=== PATIENT | male | born 1960 | race African-American/Black ===

== ENCOUNTER 2017-02-24 05:50 | Emergency (ER) | payer MEDICAID ==
[~2017-02-24] VITALS: Ht 180.3 cm; Wt 84.0 kg
[~2017-02-24 05:50] MED LIST: GLIP5TAB12 PO; METF10002 PO
[2017-02-24] MEDS ORDERED: KETOROLAC 60MG/2ML VIAL IM ONE (07:45)
[2017-02-24 12:56] LABS: INR 1.1; PROTHROMBIN TIME 11.1 sec (9.4-11.6)
[2017-02-24 13:04] LABS: CARBON DIOXIDE 29 mEq/L (21-32); CHLORIDE 106 mEq/L (98-107); TROPONIN I < 0.02 ng/mL (0.00-0.04)
[2017-02-24 14:26] LABS: BASOPHILS % 0.2 % (0.0-2.0); EOSINOPHILS % 1.9 % (0.0-5.0); HEMATOCRIT. 46.6 % (42.0-52.0); HEMOGLOBIN. 15.7 g/dL (14.0-18.0); LYMPHOCYTES % 29.2 % (20.0-50.0); MEAN CORPUSCULAR HEMOGLOBIN 30.6 pg (28.0-32.0); MEAN CORPUSCULAR VOLUME 90.4 fL (80.0-94.0); NEUTROPHILS % 61.7 % (40.0-76.0); PLATELET 110 x1000/uL (130-400); RED BLOOD CELL COUNT 5.15 mill/uL (4.7-6.1); RED CELL DISTRIBUTION WIDTH 13.7 % (11.6-14.6)
[2017-02-24 15:02] VITALS: BP 160/82
== END 2017-02-24 15:03 | disposition home or self-care (01) ==
LOC: ER 05:50
DX: M79.1 Myalgia (principal); M54.2 Cervicalgia; R07.9 Chest pain, unspecified; E11.9 Type 2 diabetes mellitus without complications; Z89.422 Acquired absence of other left toe(s)
CPT/HCPCS: 36415; 71010; 72050; 80048; 82962; 84484; 85025; 85610; 93005; 96372; 99285; J1885; Z7610

== ENCOUNTER 2019-01-19 19:58 | Inpatient (IN) | payer MEDICAID ==
[~2019-01-19] VITALS: Ht 175.3 cm; Wt 91.6 kg
[~2019-01-19 19:58] MED LIST changes: +METF-416 PO; -METF10002 PO
[2019-01-19] MEDS ORDERED: ONDANSETRON HCL 4MG/2ML INJ IV STA (23:49)
[2019-01-19] MEDS ORDERED: ACETAMINOPHEN 325MG TABLET PO STA (23:49)
[2019-01-19] MEDS ORDERED: MORPHINE SULFATE 4 MG/ML CPJ (NOT FOR IM USE) IV STA (23:49)
[2019-01-20] VITALS (10 sets, daily range): BP systolic 106–166; BP diastolic 41–88
[2019-01-20] MEDS ORDERED: SODIUM CHLORIDE 0.9% 1000ML BAG (SEPSIS BOLUS) IV ONE
[2019-01-20] MEDS ORDERED: VANCOMYCIN 1 G PREMIX 200 ML IV ONE
[2019-01-20] MEDS ORDERED: CLINDAMYCIN 600 MG in DEXTROSE 5% WATER 50 ML IV ONE ×2
[2019-01-20] MEDS ORDERED: PIPERACILLIN/TAZ 3.375G PREMIX 50 ML IV ONE
[2019-01-20 00:10] LABS: BG BASE EXCESS 3.9 mmol/L (-2.0-2.0); BG CARBOXYHEMOGLOBIN 0.5 % (0.5-1.5); BG DEOXYHEMOGLOBIN 8.2 % (0.0-5.0); BG FRACTION INSPIRED OXYGEN 21; BG HCO3 ACT 28.6 mmol/L (22.0-26.0); BG METHEMOGLOBIN 0.3 % (0.0-1.5); BG OXYGEN SATURATION 91.7 % (92.0-98.5); BG PCO2 43.1 mmHg (35.0-45.0); BG PH 7.439 (7.350-7.450); BG SAMPLE SITE RIGHT RADIAL; BG TOTAL HEMOGLOBIN 11.1 g/dL (12.0-18.0); BG VENT MODE ROOM AIR
[2019-01-20 00:15] LABS: HEMATOCRIT. 32.5 % (42.0-52.0); HEMOGLOBIN. 10.7 g/dL (14.0-18.0); MEAN CORPUSCULAR HEMOGLOBIN 30.4 pg (28.0-32.0); MEAN CORPUSCULAR VOLUME 92.5 fL (80.0-94.0); PLATELET 188 x1000/uL (130-400); RED BLOOD CELL COUNT 3.52 mill/uL (4.7-6.1); RED CELL DISTRIBUTION WIDTH 13.6 % (11.6-14.6)
[2019-01-20 00:18] LABS: CHLORIDE 91 mEq/L (98-107)
[2019-01-20 00:19] LABS: INR 1.2; PROTHROMBIN TIME 12.4 sec (9.6-11.0)
[2019-01-20 00:24] LABS: BETA HYDROXYBUTYRATE 0.9 mMol/L (0.0-0.3)
[2019-01-20] MEDS ORDERED: CLINDAMYCIN 600 MG in SODIUM CHLORIDE 0.9% 50 ML IV NR (00:45)
[2019-01-20 01:14] LABS: ATYPICAL LYMPHOCYTES 1
[2019-01-20 01:15] LABS: PLATELET ESTIMATE NORMAL
[2019-01-20] MEDS ORDERED: SODIUM CHLORIDE 0.9% 1,000 ML IV ONE (01:49)
[2019-01-20] MEDS ORDERED: INSULIN REGULAR (HUMULIN R) 300UNITS/3ML SUBCUT NR (02:00)
[2019-01-20] MEDS ORDERED: ONDANSETRON HCL 4MG/2ML INJ IV PRN ×2 (07:30→21:45)
[2019-01-20] MEDS ORDERED: DEXTROSE 50% WATER 50ML SYRINGE IV PRN (07:30)
[2019-01-20] MEDS ORDERED: HYDROCODONE/ACETAMINOPHEN 5/325MG TABLET PO PRN (07:30)
[2019-01-20] MEDS ORDERED: PIPERACILLIN/TAZ 3.375G PREMIX 50 ML IV SCH (07:30)
[2019-01-20] MEDS: BLOOD SUGAR DIAGNOSTIC STRIP TEST SCH ×4 (08:00→21:00)
[2019-01-20] MEDS: INSULIN LISPRO 100 UNITS/ML SUBCUT SCH ×4 (08:57→21:00)
[2019-01-20] MEDS ORDERED: VANCOMYCIN 1250MG in DEXTROSE 5% WATER 250ML IV SCH (10:00)
[2019-01-20] MEDS: ENOXAPARIN 40MG/0.4ML SYR SUBCUT SCH (10:04)
[2019-01-20] MEDS: SODIUM CHLORIDE 0.9% 1,000 ML IV SCH ×2 (10:07→18:49)
[2019-01-20] MEDS: INSULIN GLARGINE UD 100 UNITS/ML SYR SUBCUT SCH ×2 (10:37→22:00)
[2019-01-20] MEDS: VANCOMYCIN 1250MG in DEXTROSE 5% WATER 250ML IV SCH (12:56)
[2019-01-20] MEDS: PIPERACILLIN/TAZOBACTAM 3.375 G in DEXT 5% WATER 100 ML IV SCH ×2 (12:58→18:49)
[2019-01-20] MEDS ORDERED: TETANUS, DIPHTHERIA, PERTUSSIS VAC/PF 0.5ML (>7YR OLD) IM ONE (16:30)
[2019-01-20] MEDS ORDERED: BUPIVACAINE HCL/PF 0.5% (5MG/ML) 10ML ONE (19:39)
[2019-01-20] MEDS ORDERED: LIDOCAINE HCL 1% 20ML VIAL (Pyxis) INJ ONE (19:39)
[2019-01-20] MEDS ORDERED: BACITRACIN 50,000 UNITS/VIAL ONE (19:40)
[2019-01-20] MEDS ORDERED: MIDAZOLAM HCL 5 MG/5 ML VIAL ONE (20:36)
[2019-01-20] MEDS ORDERED: PROPOFOL 200MG/20ML VIAL IV ONE ×2 (20:36→21:03)
[2019-01-20] MEDS ORDERED: THROMBIN (BOVINE) 5000 UNITS/VIAL TOP ONE (21:29)
[2019-01-20] MEDS ORDERED: HYDROMORPHONE HCL/PF 2MG/ML CPJ IV PRN (21:45)
[2019-01-20] MEDS ORDERED: SODIUM CHLORIDE 0.9% 1,000 ML IV NR (21:45)
[2019-01-21] VITALS (9 sets, daily range): BP systolic 120–166; BP diastolic 60–88
[2019-01-21] MEDS: PIPERACILLIN/TAZOBACTAM 3.375 G in DEXT 5% WATER 100 ML IV SCH ×5 (01:32→23:20)
[2019-01-21] MEDS: SODIUM CHLORIDE 0.9% 1,000 ML IV SCH ×2 (01:33→14:17)
[2019-01-21] MEDS: VANCOMYCIN 1250MG in DEXTROSE 5% WATER 250ML IV SCH ×2 (04:38→23:59)
[2019-01-21 05:44] LABS: BASOPHILS % 0.2 % (0.0-2.0); EOSINOPHILS % 0.3 % (0.0-5.0); HEMATOCRIT. 22.5 % (42.0-52.0); HEMOGLOBIN. 7.6 g/dL (14.0-18.0); LYMPHOCYTES % 7.3 % (20.0-50.0); MEAN CORPUSCULAR HEMOGLOBIN 30.4 pg (28.0-32.0); MEAN CORPUSCULAR VOLUME 90.1 fL (80.0-94.0); MEAN PLATELET VOLUME 10.8 fl (7.4-10.4); MONOCYTES % 7.2 % (2.0-8.0); PLATELET 147 x1000/uL (130-400); RED CELL DISTRIBUTION WIDTH 13.7 % (11.6-14.6)
[2019-01-21] MEDS: INSULIN LISPRO 100 UNITS/ML SUBCUT SCH ×4 (08:00→20:52)
[2019-01-21] MEDS: BLOOD SUGAR DIAGNOSTIC STRIP TEST SCH ×4 (08:21→21:00)
[2019-01-21] MEDS: ENOXAPARIN 40MG/0.4ML SYR SUBCUT SCH (09:59)
[2019-01-21] MEDS: INSULIN GLARGINE UD 100 UNITS/ML SYR SUBCUT SCH ×2 (10:00→21:44)
[2019-01-21 15:27] LABS: *AMPHETAMINES SCREEN URINE NEGATIVE (NEGATIVE); *BARBITURATES SCREEN URINE NEGATIVE (NEGATIVE); *BENZODIAZEPINES SCREEN URINE PRESUMTIVE POSITIVE (NEGATIVE); *COCAINE SCREEN URINE NEGATIVE (NEGATIVE); CANNABINOID URINE SCREEN NEGATIVE (NEGATIVE); METHADONE URINE SCREEN NEGATIVE (NEGATIVE); OPIATES URINE SCREEN PRESUMTIVE POSITIVE (NEGATIVE)
[2019-01-21 15:28] LABS: PHENCYCLIDINE URINE SCREEN NEGATIVE (NEGATIVE)
[2019-01-21] MEDS: ACETAMINOPHEN 325MG TABLET PO PRN (20:51)
[2019-01-21] MEDS: MORPHINE SULFATE 2 MG/ML CPJ (NOT FOR IM USE) IV PRN (20:54)
[2019-01-22] VITALS (21 sets, daily range): BP systolic 120–182; BP diastolic 65–98
[2019-01-22] MEDS: SODIUM CHLORIDE 0.9% 1,000 ML IV SCH ×3 (05:37→23:50)
[2019-01-22] MEDS: PIPERACILLIN/TAZOBACTAM 3.375 G in DEXT 5% WATER 100 ML IV SCH ×4 (05:40→23:50)
[2019-01-22 06:46] LABS: BASOPHILS % 0.2 % (0.0-2.0); EOSINOPHILS % 0.5 % (0.0-5.0); LYMPHOCYTES % 11.9 % (20.0-50.0); MEAN CORPUSCULAR HEMOGLOBIN 30.2 pg (28.0-32.0); MEAN CORPUSCULAR VOLUME 90.5 fL (80.0-94.0); MEAN PLATELET VOLUME 11.2 fl (7.4-10.4); MONOCYTES % 6.9 % (2.0-8.0); NEUTROPHILS % 80.5 % (40.0-76.0); PLATELET 166 x1000/uL (130-400); RED BLOOD CELL COUNT 2.24 mill/uL (4.7-6.1); RED CELL DISTRIBUTION WIDTH 13.3 % (11.6-14.6)
[2019-01-22] MEDS: BLOOD SUGAR DIAGNOSTIC STRIP TEST SCH ×4 (07:30→20:30)
[2019-01-22] MEDS: INSULIN LISPRO 100 UNITS/ML SUBCUT SCH ×4 (08:00→20:34)
[2019-01-22 08:02] LABS: HEMATOCRIT. 20.3 % (42.0-52.0); HEMOGLOBIN. 6.8 g/dL (14.0-18.0)
[2019-01-22] MEDS: ENOXAPARIN 40MG/0.4ML SYR SUBCUT SCH (10:00)
[2019-01-22] MEDS ORDERED: VANCOMYCIN 1500MG in DEXTROSE 5% WATER 250ML IV SCH (18:00)
[2019-01-22] MEDS: MORPHINE SULFATE 2 MG/ML CPJ (NOT FOR IM USE) IV PRN (18:41)
[2019-01-22] MEDS: INSULIN GLARGINE UD 100 UNITS/ML SYR SUBCUT SCH (21:56)
[2019-01-22] MEDS: ACETAMINOPHEN 325MG TABLET PO PRN (23:50)
[2019-01-23] VITALS (8 sets, daily range): BP systolic 138–180; BP diastolic 65–90
[2019-01-23] MEDS: PIPERACILLIN/TAZOBACTAM 3.375 G in DEXT 5% WATER 100 ML IV SCH (05:26)
[2019-01-23 06:35] LABS: BASOPHILS % 0.5 % (0.0-2.0); EOSINOPHILS % 1.3 % (0.0-5.0); HEMATOCRIT. 25.2 % (42.0-52.0); HEMOGLOBIN. 8.5 g/dL (14.0-18.0); LYMPHOCYTES % 13.1 % (20.0-50.0); MEAN CORPUSCULAR HEMOGLOBIN 29.6 pg (28.0-32.0); MEAN CORPUSCULAR VOLUME 87.9 fL (80.0-94.0); MEAN PLATELET VOLUME 10.2 fl (7.4-10.4); MONOCYTES % 7.1 % (2.0-8.0); PLATELET 176 x1000/uL (130-400); RED BLOOD CELL COUNT 2.86 mill/uL (4.7-6.1); RED CELL DISTRIBUTION WIDTH 15.1 % (11.6-14.6)
[2019-01-23 06:42] LABS: CHLORIDE 107 mEq/L (98-107)
[2019-01-23] MEDS: INSULIN LISPRO 100 UNITS/ML SUBCUT SCH ×4 (08:00→20:14)
[2019-01-23] MEDS: BLOOD SUGAR DIAGNOSTIC STRIP TEST SCH ×4 (08:01→20:14)
[2019-01-23] MEDS: INSULIN GLARGINE UD 100 UNITS/ML SYR SUBCUT SCH ×2 (11:07→21:29)
[2019-01-23] MEDS ORDERED: CEFAZOLIN 1000MG PREMIX 50 ML IV SCH ×2 (13:00)
[2019-01-23] MEDS ORDERED: CEFAZOLIN 2000MG in DEXTROSE 5% WATER 100ML IV SCH (14:00)
[2019-01-23] MEDS: CEFAZOLIN 2,000 MG in DEXT 5% WATER 100 ML IV SCH (17:40)
[2019-01-24] VITALS: BP 137/79
[2019-01-24] MEDS: CEFAZOLIN 2,000 MG in DEXT 5% WATER 100 ML IV SCH ×3 (01:16→16:51)
[2019-01-24 04:00] VITALS: BP 141/76
[2019-01-24] MEDS: SODIUM CHLORIDE 0.9% 1,000 ML IV SCH ×2 (04:25→12:29)
[2019-01-24] MEDS: BLOOD SUGAR DIAGNOSTIC STRIP TEST SCH ×4 (07:44→21:00)
[2019-01-24] MEDS: INSULIN LISPRO 100 UNITS/ML SUBCUT SCH ×4 (07:44→21:00)
[2019-01-24 08:00] VITALS: BP 158/82
[2019-01-24] MEDS: INSULIN GLARGINE UD 100 UNITS/ML SYR SUBCUT SCH ×2 (11:31→21:07)
[2019-01-24 12:00] VITALS: BP 153/83
[2019-01-24 16:00] VITALS: BP 159/87
[2019-01-24 20:00] VITALS: BP 149/89
[2019-01-25] VITALS: BP 152/84
[2019-01-25] MEDS: CEFAZOLIN 2,000 MG in DEXT 5% WATER 100 ML IV SCH ×3 (01:19→16:30)
[2019-01-25 04:00] VITALS: BP 147/85
[2019-01-25] MEDS: SODIUM CHLORIDE 0.9% 1,000 ML IV SCH (05:27)
[2019-01-25] MEDS: INSULIN LISPRO 100 UNITS/ML SUBCUT SCH ×4 (07:43→21:00)
[2019-01-25] MEDS: BLOOD SUGAR DIAGNOSTIC STRIP TEST SCH ×4 (07:43→21:00)
[2019-01-25 08:00] VITALS: BP 157/79
[2019-01-25] MEDS: INSULIN GLARGINE UD 100 UNITS/ML SYR SUBCUT SCH ×2 (09:08→22:04)
[2019-01-25 12:00] VITALS: BP 165/92
[2019-01-25 16:00] VITALS: BP 161/93
[2019-01-25] MEDS: CLONIDINE 0.1MG TABLET PO PRN (16:02)
[2019-01-25 20:00] VITALS: BP 154/92
[2019-01-25] MEDS: AMLODIPINE 5MG TABLET PO SCH (20:33)
[2019-01-26] VITALS: BP 153/84
[2019-01-26] MEDS: SODIUM CHLORIDE 0.9% 1,000 ML IV SCH (01:51)
[2019-01-26] MEDS: CEFAZOLIN 2,000 MG in DEXT 5% WATER 100 ML IV SCH ×3 (01:51→18:48)
[2019-01-26 04:00] VITALS: BP 147/77
[2019-01-26 06:55] LABS: BASOPHILS % 0.7 % (0.0-2.0); EOSINOPHILS % 1.6 % (0.0-5.0); HEMATOCRIT. 23.9 % (42.0-52.0); HEMOGLOBIN. 7.9 g/dL (14.0-18.0); MEAN CORPUSCULAR HEMOGLOBIN 29.6 pg (28.0-32.0); MEAN CORPUSCULAR VOLUME 89.3 fL (80.0-94.0); MEAN PLATELET VOLUME 9.7 fl (7.4-10.4); MONOCYTES % 8.1 % (2.0-8.0); NEUTROPHILS % 72.6 % (40.0-76.0); PLATELET 204 x1000/uL (130-400); RED BLOOD CELL COUNT 2.67 mill/uL (4.7-6.1); RED CELL DISTRIBUTION WIDTH 14.6 % (11.6-14.6)
[2019-01-26] MEDS: INSULIN LISPRO 100 UNITS/ML SUBCUT SCH ×4 (07:08→21:00)
[2019-01-26] MEDS: BLOOD SUGAR DIAGNOSTIC STRIP TEST SCH ×4 (07:08→20:09)
[2019-01-26 07:13] LABS: CHLORIDE 112 mEq/L (98-107)
[2019-01-26 08:00] VITALS: BP 174/93
[2019-01-26] MEDS: AMLODIPINE 5MG TABLET PO SCH ×2 (09:39→20:02)
[2019-01-26 12:01] LABS: TOTAL IRON BINDING CAPACITY 110 ug/dL (250-450)
[2019-01-26 12:12] VITALS: BP 144/73
[2019-01-26] MEDS: INSULIN GLARGINE UD 100 UNITS/ML SYR SUBCUT SCH ×2 (13:20→21:03)
[2019-01-26 16:00] VITALS: BP 162/94
[2019-01-26 20:00] VITALS: BP 149/96
[2019-01-26] MEDS: HYDRALAZINE HCL 50MG TABLET PO SCH (20:02)
[2019-01-27] VITALS: BP 142/86
[2019-01-27] MEDS: CEFAZOLIN 2,000 MG in DEXT 5% WATER 100 ML IV SCH ×2 (00:38→09:36)
[2019-01-27 04:00] VITALS: BP 148/87
[2019-01-27] MEDS: BLOOD SUGAR DIAGNOSTIC STRIP TEST SCH ×2 (06:24→11:42)
[2019-01-27 06:37] LABS: BASOPHILS % 0.6 % (0.0-2.0); HEMATOCRIT. 24.8 % (42.0-52.0); HEMOGLOBIN. 8.5 g/dL (14.0-18.0); LYMPHOCYTES % 18.1 % (20.0-50.0); MEAN CORPUSCULAR HEMOGLOBIN 30.5 pg (28.0-32.0); MEAN CORPUSCULAR VOLUME 88.9 fL (80.0-94.0); MEAN PLATELET VOLUME 9.4 fl (7.4-10.4); MONOCYTES % 7.6 % (2.0-8.0); NEUTROPHILS % 71.7 % (40.0-76.0); PLATELET 234 x1000/uL (130-400); RED BLOOD CELL COUNT 2.79 mill/uL (4.7-6.1); RED CELL DISTRIBUTION WIDTH 14.9 % (11.6-14.6)
[2019-01-27 07:13] LABS: CHLORIDE 115 mEq/L (98-107)
[2019-01-27] MEDS: INSULIN LISPRO 100 UNITS/ML SUBCUT SCH ×2 (07:47→12:43)
[2019-01-27 08:00] VITALS: BP 161/91
[2019-01-27] MEDS: AMLODIPINE 5MG TABLET PO SCH (09:35)
[2019-01-27] MEDS: HYDRALAZINE HCL 50MG TABLET PO SCH (09:36)
[2019-01-27] MEDS: INSULIN GLARGINE UD 100 UNITS/ML SYR SUBCUT SCH (09:48)
[2019-01-27] MEDS: CLONIDINE 0.1MG TABLET PO PRN (09:53)
[2019-01-27 12:26] VITALS: BP 120/86
[2019-01-27 13:26] VITALS: BP 161/91
[2019-01-27] MEDS ORDERED: INSULIN GLARGINE UD 100 UNITS/ML SYR SUBCUT SCH (22:00)
== END 2019-01-27 15:53 | DRG 710 ==
LOC: ER 19:58 → 5EST 01-20 03:17 → EDBEDREQTM 01-20 03:19 → EDBEDREQ 01-20 03:19 → EDBEDREQDT 01-20 03:19 → ENRESERV 01-20 04:10 → 6EST 01-23 15:36
PROVIDERS: ADMIT Internal Medicine; ATTEND Internal Medicine
PROC: 0Q9N0ZZ Drainage of Right Metatarsal, Open Approach (ICD-10-PCS; principal; 2019-01-20)
PROC: 0SBM0ZZ Excision of Right Metatarsal-Phalangeal Joint, Open Approach (ICD-10-PCS; 2019-01-20)
PROC: 0Y9M0ZZ Drainage of Right Foot, Open Approach (ICD-10-PCS; 2019-01-20)
PROC: 02HV33Z Insertion of Infusion Device into Superior Vena Cava, Percutaneous Approach (ICD-10-PCS; 2019-01-20)
PROC: B5181ZA Fluoroscopy of Superior Vena Cava using Low Osmolar Contrast, Guidance (ICD-10-PCS; 2019-01-20)
PROC: B54MZZA Ultrasonography of Right Upper Extremity Veins, Guidance (ICD-10-PCS; 2019-01-20)
DX: A41.9 Sepsis, unspecified organism (principal); N17.0 Acute kidney failure with tubular necrosis; E43 Unspecified severe protein-calorie malnutrition; A48.0 Gas gangrene; M00.9 Pyogenic arthritis, unspecified; L03.115 Cellulitis of right lower limb; E87.8 Other disorders of electrolyte and fluid balance, not elsewhere classified; E11.65 Type 2 diabetes mellitus with hyperglycemia; M86.9 Osteomyelitis, unspecified; D64.9 Anemia, unspecified; E11.42 Type 2 diabetes mellitus with diabetic polyneuropathy; E11.52 Type 2 diabetes mellitus with diabetic peripheral angiopathy with gangrene; I10 Essential (primary) hypertension
CPT/HCPCS: 36415; 36600; 71045; 73610; 73630; 73700; 76937; 80048; 80202; 80305; 82010; 82270; 82375; 82728; 82805; 82962; 83036; 83540; 83550; 83605; 84145; 85651; 86140; 86850; 86900; 86920; 87070; 87075; 87077; 88305; 88311; 90715; 93005; 93306; 96374; 97022; 97116; 97162; 97166; 99285; C1725; J0690; J1170; J1650; J1815; J2250; J2270; J2405; J2543; J2704; J3370; J3490; J7030; J7040; J7050; J7060; P9016